=== PATIENT | male | born 1980 | race Hispanic/Latino ===

== ENCOUNTER → 2021-07-28 | Outpatient (CLI) | payer OTHER ==
[~2021-07-28] VITALS: Ht 182.9 cm; Wt 87.5 kg
[2021-07-29 09:25] VITALS: BP 127/63
== END | disposition home or self-care (01) ==
LOC: CANPRESDC → EDSTATUS 06-23 09:15 → DAH 10:00
PROVIDERS: ATTEND Urology
DX: Z30.2 Encounter for sterilization (principal); Z79.01 Long term (current) use of anticoagulants
CPT/HCPCS: 87635; A6260; C9803